=== PATIENT | male | born 1980 | race Caucasian/White ===

== ENCOUNTER → 2018-07-18 07:26 | Outpatient (CLI) | payer OTHER, SELFPAY ==
--- NOTE | 2018-07-18 | DI.MRI.S_ITS ---
PROCEDURE: MR SHOULDER RT W CON INDICATIONS: DISLOCATION OF R SHOULDER TECHNIQUE: After the administration of 12 mL of dilute intra-articular Gadolinium contrast, oblique coronal T1 and T2 spin echo with fat saturation, oblique sagittal T1 spin echo with and without fat saturation, oblique sagittal T2 fast spin echo with fat saturation, axial T1 spin echo with fat saturation through the shoulder. COMPARISON: [facility], , SHOULDER MINIMUM 2VIEW RIGHT, 10/29/2006, 10:44. FINDINGS: Image quality: Excellent. Rotator cuff: The supraspinatus, infraspinatus, teres minor and subscapularis tendons appear intact throughout. No rotator cuff muscle atrophy on sagittal images. Bones and bursae: Hill-Sachs fracture deformity is seen involving the posterior superior humeral head, and there is prominent marrow edema involving the greater tuberosity. This appears to be somewhat distant from the Hill-Sachs fracture deformity and may represent isolated greater tuberosity fracture or severe marrow contusion. Consider further evaluation with shoulder radiographs. No acromioclavicular joint degeneration. The acromion demonstrates conventional anatomy, without an os acromiale. There is moderate Capsule and soft tissues: Postsurgical changes related to prior labral repair, with anchor tracks seen in the anteroinferior glenoid. There is no definite intrasubstance gadolinium signal intensity within the anteroinferior labrum, which demonstrates prominent internal signal change and ill-defined margins, potentially representing postoperative appearance. However there is gadolinium signal intensity present within the superior labrum, suspicious for tear although indeterminate age. This is seen on image 13 series 7. Blunted appearance of the posterior labrum however no definite posterior subluxation of the humeral head relative to the glenoid The long head of the biceps tendon demonstrates normal location and morphology. The rotator interval appears normal, without fibrosis. The coracohumeral ligament is of normal thickness. No intra-articular bodies. IMPRESSION: Prominent marrow edema involving the greater tuberosity suggesting severe marrow contusion versus nondisplaced fracture. Recommend further evaluation with dedicated shoulder radiographs. Hill-Sachs fracture deformity, and was present on the prior remote radiographs dated 10/29/06 in keeping with chronic age. Superior labral tear, with type II SLAP appearance. Ill-defined appearance and hypertrophy of the anteroinferior labrum, with internal signal changes, probably representing chronic postoperative appearance given the absence of intrasubstance gadolinium signal. Dictated by: Lamin Trejo M.D. on 07/18/2018 at 9:56 Approved by: Lamin Trejo M.D. on 07/18/2018 at 10:12
--- NOTE | 2018-07-18 | DI.RAD.S_ITS ---
PROCEDURE: FL SHOULDER INJECTION MR/CT RT INDICATIONS: DISLOCATION OF R SHOULDER TECHNIQUE: The indications, alternatives, benefits, risks, and complications of the procedure were explained to the patient. Written informed consent was obtained and placed in the chart. The shoulder was examined fluoroscopically and a site for needle placement chosen for entry into the glenohumeral joint from an anterior approach. The skin was prepped and draped in a sterile fashion, and 1% lidocaine infiltrated from skin down to joint capsule. A spinal needle was inserted into the glenohumeral joint, and a small amount of iodinated contrast media injected to confirm intra-articular placement of the needle tip. This was followed by approximately 12 mL dilute solution of a gadolinium containing MR contrast agent. The needle was removed and a dressing was applied. The patient was given postprocedural instructions and sent to the MR suite for MR imaging. FINDINGS: A single fluoroscopic spot image demonstrates intra-articular location of injected iodinated contrast. IMPRESSION: Successful fluoroscopically guided administration of dilute Gadolinium solution into the shoulder joint for MR arthrogram. Dictated by: Chuy Rowe M.D. on 07/18/2018 at 9:57 Approved by: Chuy Rowe M.D. on 07/18/2018 at 9:57
== END ==
PROVIDERS: Visit Provider Orthopaedic Surgery
DX: S43.004A Unspecified dislocation of right shoulder joint, initial encounter (principal); S43.491A Other sprain of right shoulder joint, initial encounter; S42.291S Other displaced fracture of upper end of right humerus, sequela
CPT/HCPCS: 23350; 73222; 77002